=== PATIENT | female | born 1950 | race Caucasian/White ===

== ENCOUNTER 2016-05-15 13:07 | Emergency (ER) | payer OTHER ==
[2016-05-15] MEDS ORDERED: ASPIRIN PO STA (13:27)
[2016-05-15] MEDS ORDERED: ATIVAN IV ONE (13:28)
--- NOTE | 2016-05-15 13:35 | EKG Report ---
Test Performed on : 05/15/2016 1:08:52 PM Test Reason : Chest Pain Blood Pressure : / mmHG Vent. Rate : 065 BPM Atrial Rate : 065 BPM P-R Int : 136 ms QRS Dur : 078 ms QT Int : 436 ms P-R-T Axes : 090 083 086 degrees QTc Int : 453 ms Normal sinus rhythm. Possible Left atrial enlargement Borderline ECG When compared with ECG of 05-FEB-2007 07:01, No significant change was found Unconfirmed Result
--- NOTE | 2016-05-15 13:37 | PROVIDER DOCUMENTATION ---
HPI-Chest Pain - General Chief Complaint: Chest Pain Stated Complaint: cp/sob Time Seen by Provider: 05/15/16 13:19 Source: patient Allergies/Adverse Reactions: Patient Allergies Allergy/AdvReac Type Severity Reaction Status Date / Time prednisone Allergy Intermediate VOMITING Verified 05/15/16 13:49 carbamazepine [From Tegretol] Allergy Mild bone Verified 05/15/16 13:49 marrow suppression divalproex sodium Allergy Mild bone Verified 05/15/16 13:49 [From Depakote] marrow depression phenytoin sodium * Allergy Mild bone Verified 05/15/16 13:49 [From Dilantin] marrow suppresion phenytoin sodium extended * Allergy Mild bone Verified 05/15/16 13:49 [From Dilantin] marrow suppresion fentanyl Allergy Unknown Verified 05/15/16 13:49 sulfur dioxide Allergy Unknown Verified 05/15/16 13:49 temazepam [From Restoril] Allergy ITCHING Verified 05/15/16 13:49 duloxetine HCl * AdvReac weakness Verified 05/15/16 13:49 [From Cymbalta] Home Medications: Home Medication List Medication Instructions Recorded Confirmed Last Taken Type Alprazolam [Xanax] 2 mg PO BID 05/15/16 05/15/16 05/15/16 10:00 History Dexlansoprazole [Dexilant] 60 mg PO DAILY 05/15/16 05/15/16 05/14/16 22:00 History Fluoxetine HCl [Prozac] 40 mg PO DAILY 05/15/16 05/15/16 05/15/16 10:00 History Lamotrigine [Lamictal] 100 mg PO BID 05/15/16 05/15/16 05/15/16 10:00 History Levothyroxine [Synthroid] 50 microgm PO DAILY 05/15/16 05/15/16 05/15/16 10:00 History Loratadine [Allergy] 10 mg PO DAILY 05/15/16 05/15/16 05/14/16 22:00 History Meloxicam [Mobic] 15 mg PO DAILY 05/15/16 05/15/16 05/14/16 22:00 History Morphine Sulfate 15 mg PO BID 05/15/16 05/15/16 05/14/16 22:00 History Morphine Sulfate [Morphine Sulfate 15 mg PO BID 05/15/16 05/15/1617 22: 00 History ER] Olanzapine [Zyprexa] 10 mg PO BID 05/15/16 05/15/16 05/14/16 22:00 History PRAVAstatin [Pravachol] 20 mg PO DAILY 05/15/16 05/15/16 05/14/16 22:00 History Polyethylene Glycol 3350 [Miralax] 17 gm PO DAILY 05/15/16 05/15/16 05/14/16 22: 00 History Tizanidine HCl [Zanaflex] 4 mg PO QHS 05/15/16 05/15/16 05/14/16 22:00 History - History of Present Illness-CP Nature of Presenting Problem: patient is a 66 y/o F that presents to the ER with chest pressure and shortness of breath that began a hour ago. She had two episodes of this with diaphoresis and nausea. She felt she almost like she was going to pass out. Patient denies any fever/chills, cough. Patient is very anxious. Location: reports: central Chest Pain Radiation: reports: no radiation Quality of Pain: reports: tightness Severity in ED: mild, moderate Onset/Duration: abrupt, 1 hour ago Timing: still present, intermittent Context/Activities at Onset: reports: none Modifying Factors: worse with: movement Associated Symptoms: reports: diaphoresis, nausea, shortness of breath. denies : back pain, dizziness, edema, fatigue, fever/chills, swelling/lump in chest, syncope Nitro Today/Relief: 0.4 mg x 1, provided by ED Aspirin Treatment Today: 325 mg x 1, provided by ED Prior Chest Pain/Cardiac Workup: reports: no prior chest pain Similar Symptoms Previously?: No Recently Seen Here or By Another Healthcare Provider: No Review of Systems - Adult - REVIEW OF SYSTEMS - ADULT Constitutional: denies: chills, fever Eyes: reports: no symptoms reported Ears, Nose, Mouth & Throat: denies: ear pain, sinus problem, throat pain, throat swelling Cardiovascular: reports: chest pain. denies: palpitations Respiratory: reports: shortness of breath. denies: cough, wheezing Gastrointestinal: reports: nausea, vomiting. denies: abdominal pain, diarrhea Genitourinary: reports: no symptoms reported Musculoskeletal: reports: no symptoms reported Integumentary: reports: no symptoms reported Neurological: denies: dizziness/vertigo, headache/migraines, seizure, tremors Psychiatric: reports: anxiety. denies: panic attacks Endocrine: reports: no symptoms reported Hematologic/Lymphatic: reports: no symptoms reported Allergic/Immunologic: reports: no symptoms reported All Other Systems: Reviewed and Negative Past History - Adult - PAST MEDICAL HISTORY-ADULT Review of Records: reports: Nursing Assessment Review, Medications Reviewed Cardiovascular: reports: hyperlipidemia Gastrointestinal: reports: GERD Musculoskeletal: reports: arthritis, chronic pain Psychiatric: reports: anxiety, bipolar - PRIOR SURGERIES/PROCEDURES Surgical/Procedure History: reports: cholecystectomy, hysterectomy, tonsillectomy, back/neck - IMMUNIZATION STATUS Childhood Immunizations: See Nurse Assessment Flu Vaccine: See Nurse Assessment - FAMILY HISTORY Family History: reviewed, not pertinent - SOCIAL HISTORY Smoking: non-smoker Living Situation: family Physical Exam-General - PHYSICAL EXAM-ADULT Initial Vital Signs Reviewed: Yes - CONSTITUTIONAL General Appearance: alert, mild distress, anxious (very) - EYES Eyes: PERRL/EOMI, pink conjunctivae - HEAD, EARS, NOSE, MOUTH & THROAT HENMT: normocephalic/atraumatic, moist mucous membranes, normal ENT inspection - NECK Neck: full range of motion, normal inspection. negative: lymphadenopathy - RESPIRATORY Respiratory: lungs clear, normal breath sounds, no respiratory distress, no accessory muscle use - CARDIOVASCULAR Cardiovascular: regular rate, rhythm, no edema, no murmur - GASTROINTESTINAL (ABDOMEN) Abdominal Exam: normal bowel sounds, non tender, soft - MUSCULOSKELETAL Extremity: normal range of motion, normal inspection, no pedal edema, normal capillary refill, pelvis stable - SKIN Integumentary: normal color, warm/dry - NEUROLOGIC Neurologic: grossly normal, no motor/sensory deficits - PSYCHIATRIC Psych/Mental Status: oriented x 3, anxious Progress - PLAN OF CARE/RESULTS Progress/Plan/Lab Results: plan of care-cardiac work up and meds Vital Signs Pulse Resp BP Pulse Ox 05/15/16 15:40 62 18 142/74 94 L 05/15/16 13:13 65 16 132/75 100 prednisone Allergy (Intermediate, Verified 05/15/16 13:49) VOMITING carbamazepine [From Tegretol] Allergy (Mild, Verified 05/15/16 13:49) bone marrow suppression divalproex sodium [From Depakote] Allergy (Mild, Verified 05/15/16 13:49) bone marrow depression phenytoin sodium * [From Dilantin] Allergy (Mild, Verified 05/15/16 13:49) bone marrow suppresion phenytoin sodium extended * [From Dilantin] Allergy (Mild, Verified 05/15/16 13: 49) bone marrow suppresion fentanyl Allergy (Verified 05/15/16 13:49) Unknown sulfur dioxide Allergy (Verified 05/15/16 13:49) Unknown temazepam [From Restoril] Allergy (Verified 05/15/16 13:49) ITCHING duloxetine HCl * [From Cymbalta] Adverse Reaction (Verified 05/15/16 13:49) weakness Alprazolam [Xanax] 2 mg PO BID 05/15/16 Dexlansoprazole [Dexilant] 60 mg PO DAILY 05/15/16 Fluoxetine HCl [Prozac] 40 mg PO DAILY 05/15/16 Lamotrigine [Lamictal] 100 mg PO BID 05/15/16 Levothyroxine [Synthroid] 50 microgm PO DAILY 05/15/16 Loratadine [Allergy] 10 mg PO DAILY 05/15/16 Meloxicam [Mobic] 15 mg PO DAILY 05/15/16 Morphine Sulfate 15 mg PO BID 05/15/16 Morphine Sulfate [Morphine Sulfate ER] 15 mg PO BID 05/15/16 Olanzapine [Zyprexa] 10 mg PO BID 05/15/16 PRAVAstatin [Pravachol] 20 mg PO DAILY 05/15/16 Polyethylene Glycol 3350 [Miralax] 17 gm PO DAILY 05/15/16 Tizanidine HCl [Zanaflex] 4 mg PO QHS 05/15/16 Laboratory 05/15/16 05/15/16 05/15/16 15:23 13:33 13:33 WBC RBC Hgb Hct MCV MCH MCHC RDW Std Deviation Plt Count MPV Immature Gran % (Auto) Neut % (Auto) Lymph % (Auto) [place] % (Auto) Eos % (Auto) Baso % (Auto) Immature Gran # (Auto) Neut # (Auto) Lymph # (Auto) [place] # (Auto) Eos # (Auto) Baso # (Auto) PT 9.7 INR 0.92 PTT (Actin FS) 23.1 Sodium Potassium Chloride Carbon Dioxide Anion Gap BUN Creatinine Estimated GFR/1.73 m2 BUN/Creatinine Ratio Glucose Calculated Osmolality Calcium Magnesium Total Bilirubin AST ALT Alkaline Phosphatase Creatine Kinase Troponin T < 0.010 < 0.010 Hsm-L-[id number] Pept Total Protein Albumin Globulin Albumin/Globulin Ratio 05/15/16 05/15/16 05/15/16 13:33 13:33 13:33 WBC 10.62 RBC 4.40 Hgb 12.5 Hct 39.6 MCV 90.0 MCH 28.4 MCHC 31.6 L RDW Std Deviation 14.6 H Plt Count 321 MPV 9.7 Immature Gran % (Auto) 0.2 Neut % (Auto) 70.7 Lymph % (Auto) 19.9 L [place] % (Auto) 4.4 Eos % (Auto) 4.5 Baso % (Auto) 0.3 Immature Gran # (Auto) 0.02 Neut # (Auto) 7.51 H Lymph # (Auto) 2.11 [place] # (Auto) 0.47 Eos # (Auto) 0.48 Baso # (Auto) 0.03 PT INR PTT (Actin FS) Sodium 142 Potassium 4.2 Chloride 101 Carbon Dioxide 25 Anion Gap 16 BUN 21 Creatinine 1.3 H Estimated GFR/1.73 m2 41 BUN/Creatinine Ratio 16 Glucose 112 H Calculated Osmolality 287 Calcium 9.9 Magnesium 2.2 Total Bilirubin 0.31 AST 18 ALT 12 Alkaline Phosphatase 119 H Creatine Kinase 74 Troponin T Lza-B-Qhjsnuzeaxi Pept 196 Total Protein 7.4 Albumin 4.2 Globulin 3.2 Albumin/Globulin Ratio 1.3 Orders Category Date Time Status Cardiac Monitoring DIRECTED Care 05/15/16 13:27 Active Saline Loc NOW Care 05/15/16 13:27 Active CHEST-2 VIEWS [RAD] Stat Exams 05/15/16 13:27 Draft CBC WITH ELECTRONIC DIFF [HEME] Stat Lab 05/15/16 13:33 Completed CK PROFILE [SP CHEM] Stat Lab 05/15/16 13:33 Completed COMPREHENSIVE METABOLIC PANEL [CHEM] Stat Lab 05/15/16 13:33 Completed MAGNESIUM [CHEM] Stat Lab 05/15/16 13:33 Completed PRO B-NATRIURETIC PEPTIDE Stat Lab 05/15/16 13:33 Completed PROTIME WITH INR [COAG] Stat Lab 05/15/16 13:33 Completed PTT [COAG] Stat Lab 05/15/16 13:33 Completed TROPONIN T Stat Lab 05/15/16 13:33 Completed TROPONIN T Stat Lab 05/15/16 15:23 Completed Aspirin Med 05/15/16 13:27 Discontinued 325 mg PO STAT STA Lorazepam [Ativan] Med 05/15/16 13:28 Discontinued 0.5 mg IV NOW ONE Nitroglycerin Sl [Nitroglycerin] Med 05/15/16 13:27 Active 0.4 mg SL Q5M PRN PRN EKG [EKG] Stat Ther 05/15/16 13:27 Draft pt will be d/c home, f/u with her pcp for outpatient stress. pt understood instructions and results. pt was clinically stable - REASSESSMENT Reassessment #1 Time Reassessed: 15:10 Status: improving Reassessment Comment: more calm, will repeat trop, if neg d.c home, pt is ok with plan of care - EKG 1 Time of EKG reading by physician:: 13:20 EKG Read and Signed by:: Nicholas Lloyd EKG Interpretation (*Must complete 3 of following elements*): Abnormal Rate: 65 Rhythm: NSR QRS: normal TN Interval: normal ST Wave: normal Comments: LAE - XRAY 1 XRAY Study: Chest Impression: Normal XRAY Interpretation: nad Departure - Departure Time of Disposition Order: 16:10 DIAGNOSIS: Anxiety Chest pain Qualifiers: Chest pain type: other chest pain Qualified Code(s): R07.89 - Other chest pain ; R07.8 - Other chest pain Disposition: HOME 01 Certified Medical Emergency: Emergent Condition: Stable Additional Instructions: Take Aspirin daily Take anxiety meds as prescribed F/U with pcp for outpatient stress. ED Follow Up Instructions: You have been treated by a care provider in the Emergency Department. These instructions are being provided to you so you can have an understanding of how to care for yourself upon discharge. Upon discharge from the Emergency Department, you are responsible for making arrangements for follow-up care by a physician of your choice. Take all prescribed medications as directed. Return to the Emergency Department immediately for any new or worsening symptoms. You may call the Physician Referral phone number at [phone] to obtain a list of Physicians who are taking new patients. Referrals: Silvino Haywood [Primary Care Provider] - (follow up with for outpatient stress) Instructions: Chest Pain Observation, Panic Attacks, [id number] Attestation - Scribe Verification/Attestation Scribe:: Sharad Marcial Acting as Scribe for:: Nicholas Lloyd Scribe documention review:: This chart was documented by a scribe and accurately reflects the service the provider performed and the decisions made by the provider. Physician Attestation - Physician Attestation I, the provider, attest to the following statement:: Nicholas Lloyd Physician documentation Attestation:: This documentation recorded by the scribe accurately reflects the service I personally performed and the decisions made by me.
[2016-05-15 13:43] LABS: MANUAL DIFF NEEDED? NO
[2016-05-15 13:49] LABS: BASO% 0.3 % (0.0-0.8); EOS# 0.48 X1000 (0.0-0.7); EOS% 4.5 % (0.0-10.0); HEMATOCRIT 39.6 % (37.0-47.0); HEMOGLOBIN 12.5 g/dL (12.0-16.0); IMM GRAN# 0.02 X1000 (0.0-0.04); IMM GRAN% 0.2 % (0.0-0.5); LYMPH# 2.11 X1000 (1.2-3.4); LYMPH% 19.9 % (20.5-51.1); MCH 28.4 PG (27-31); MCHC 31.6 g/dL (33-37); MONO# 0.47 X1000 (0.11-0.59); MONO% 4.4 % (1.7-9.3); MPV 9.7 FL (7.4-10.4); NEUT% 70.7 % (42.2-75.2); PLT 321 X1000 (130-400)
[2016-05-15 14:08] LABS: INR 0.92; PROTIME 9.7 Seconds (9.2-11.7); PTT 23.1 Seconds (22.0-36.0)
[2016-05-15 14:11] LABS: ALBUMIN 4.2 g/dL (3.5-5.0); CALCIUM 9.9 mg/dL (8.8-10.2); MAGNESIUM 2.2 mg/dL (1.5-2.7); POTASSIUM 4.2 mmol/L (3.5-5.1); TOTAL BILIRUBIN 0.31 mg/dL (0.20-1.00); TOTAL PROTEIN 7.4 g/dL (6.3-8.3)
[2016-05-15] MEDS: NITROGLYCERIN SL PRN ×3 (14:15→14:25)
--- NOTE | 2016-05-15 15:05 | Diag Imaging Result Document ---
PROCEDURE NAME: CHEST-2 VIEWS - 05/15/2016 2 VIEWS OF THE CHEST: FINDINGS: There is no evidence of acute cardiac or pulmonary disease. No previous studies are available for comparison. IMPRESSION: No acute disease.
[2016-05-15 17:42] VITALS: BP 131/67
== END 2016-05-15 17:42 | disposition home or self-care (01) ==
LOC: ED 13:07
DX: R07.89 Other chest pain (principal); F41.9 Anxiety disorder, unspecified; R94.31 Abnormal electrocardiogram [ECG] [EKG]; R06.02 Shortness of breath; R61 Generalized hyperhidrosis; R11.2 Nausea with vomiting, unspecified; E78.5 Hyperlipidemia, unspecified; M19.90 Unspecified osteoarthritis, unspecified site; Z79.899 Other long term (current) drug therapy; G89.29 Other chronic pain; F31.9 Bipolar disorder, unspecified; Z79.1 Long term (current) use of non-steroidal anti-inflammatories (NSAID)
CPT/HCPCS: 71020; 80053; 82550; 83735; 83880; 84484; 85025; 85610; 85730; 93005; J2060